=== PATIENT | female | born 1995 | race African-American/Black ===

== ENCOUNTER 2018-02-07 19:40 | Emergency (ER) | payer SELFPAY ==
[2018-02-07 19:56] VITALS: BP 128/61; PULSE 68; BMI 25.4
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
[2018-02-07 21:47] VITALS: TEMP 98
--- NOTE | 2018-02-11 15:02 | EKG ---
Test Reason : Blood Pressure : / mmHG Vent. Rate : 048 BPM Atrial Rate : 080 BPM P-R Int : 000 ms QRS Dur : 074 ms QT Int : 392 ms P-R-T Axes : 013 019 024 degrees QTc Int : 350 ms SINUS RHYTHM WITH 2ND DEGREE A-V BLOCK (MOBITZ I) WITH 2:1 A-V CONDUCTION ABNORMAL ECG NO PREVIOUS ECGS AVAILABLE Confirmed by RACHEL KEYS MD ([id number]) on 02/11/2018 3:02:10 PM Referred By: Confirmed By:RACHEL KEYS MD
== END 2018-02-07 22:43 | disposition short-term general hospital (02) ==
LOC: JER 19:40
DX: T76.21XA Adult sexual abuse, suspected, initial encounter (principal); Z86.79 Personal history of other diseases of the circulatory system; R55 Syncope and collapse; I44.1 Atrioventricular block, second degree; Y07.9 Unspecified perpetrator of maltreatment and neglect
CPT/HCPCS: 93005; 93010; 99283-25

== ENCOUNTER 2018-06-19 18:17 | Emergency (ER) | payer OTHER ==
[2018-06-19 18:41] VITALS: BP 101/32; PULSE 52; TEMP 98.3; BMI 21.3
--- NOTE | 2018-06-19 18:44 | PDOC ---
Rapid Medical Evaluation Medical Evaluation: Allergies Allergy/AdvReac Type Severity Reaction Status Date / Time No Known Allergies Allergy Verified 02/07/18 19:47 I have performed a brief in-person evaluation of this patient. The patient presents with a chief complaint of: Pertinent physical exam findings: I have ordered the following: The patient will proceed to the ED for further evaluation.
[2018-06-19] MEDS ORDERED: diphenhydrAMINE HCL 25 MG CAPSULE (FP) PO ONE ×2 (18:59→19:01)
--- NOTE | 2018-06-19 19:04 | PDOC ---
History of Present Illness - General Chief Complaint: Rash Stated Complaint: Allergic Reaction Time Seen by Provider: 06/19/18 18:48 History Source: Patient - History of Present Illness Initial Comments: 06/19/18 18:59 22 year old female c/o itchy rash to b/l arms, underneath breast and axilla. patient is from [facility] unsure of exposure Past History - Past Medical History Allergies/Adverse Reactions: Allergies Allergy/AdvReac Type Severity Reaction Status Date / Time No Known Allergies Allergy Verified 06/19/18 18:37 Home Medications: Ambulatory Orders Permethrin 60 gm TP ONCE #1 cream..g. 06/19/18 Cardiac Disorders: Yes ("heart problem" w syncopal episodes) COPD: No Psychiatric Problems: Yes (depression,) Seizures: No - Suicide/Smoking/Psychosocial Hx Smoking History: Current some day smoker Have you smoked in the past 12 months: Yes Number of Cigarettes Smoked Daily: 1 Information on smoking cessation initiated: No Hx Alcohol Use: No Drug/Substance Use Hx: No Substance Use Type: Marijuana *Physical Exam - Vital Signs Last Vital Signs Temp Pulse Resp BP Pulse Ox 98.3 F 52 L 19 101/32 L 100 06/19/18 18:37 06/19/18 18:37 06/19/18 18:37 06/19/18 18:37 06/19/18 18:37 - Physical Exam General Appearance: Yes: Appropriately Dressed Extremity: positive: Other (bites to both arm radiating up) Integumentary: positive: Normal Color, Dry, Warm Neurologic: positive: Fully Oriented, Alert, Normal Mood/Affect Moderate Sedation - Procedure Monitoring Vital Signs: Procedure Monitoring Vital Signs Temperature 98.3 F 06/19/18 18:37 Pulse Rate 52 L 06/19/18 18:37 Respiratory Rate 19 06/19/18 18:37 Blood Pressure 101/32 L 06/19/18 18:37 O2 Sat by Pulse Oximetry (%) 100 06/19/18 18:37 *DC/Admit/Observation/Transfer Diagnosis at time of Disposition: Scabies - Discharge Dispostion Disposition: HOME - Prescriptions Prescriptions: Permethrin 60 gm TP ONCE #1 cream..g. - Referrals - Patient Instructions Printed Discharge Instructions: Scabies Additional Instructions: apply cream to your body as prescribed follow up with your doctor./ - Post Discharge Activity
== END 2018-06-19 19:19 | disposition home or self-care (01) ==
LOC: JERFT 18:17
DX: B86 Scabies (principal); F32.9 Major depressive disorder, single episode, unspecified; Z86.79 Personal history of other diseases of the circulatory system
CPT/HCPCS: 99281-25